=== PATIENT | female | born 1975 | race Caucasian/White ===

== ENCOUNTER 2019-11-11 13:08 | Day surgery (SDC) | payer BC ==
[~2019-11-11] VITALS: Ht 172.7 cm; Wt 125.5 kg
[2019-11-11 13:57] VITALS: BP 143/68; PULSE 71; TEMP 98
--- NOTE | 2019-11-11 15:25 | NUR ---
Chevy Kramer here to see the patient and history and physical done. All questions answered.
--- NOTE | 2019-11-11 15:38 | NUR ---
Pre-op meds given as ordered. Quinten Thomas ATHLETIC INSTRUCTOR here to talk with the patient and all questions answered.
[2019-11-11 17:58] VITALS: BP 128/69; PULSE 85; TEMP 98.8
--- NOTE | 2019-11-11 17:58 | NUR ---
PT TO ROOM 349 PER CART WITH REPORT FROM SALVADOR LOPEZ PACU @1750. PT IS A/O X3 DENIES PAIN NAUSEA OR VOMITING, LUNGS CLEAR, BOWEL SOUNDS PRESENT. IV TO RAC WITH LR RUNNING PER GRAVITY. ORIENTED TO ROOM.
[2019-11-11 18:15] VITALS: BP 144/69; PULSE 82; TEMP 98
--- NOTE | 2019-11-11 18:49 | NUR ---
REPORT TO SARHA LOPEZ.
--- NOTE | 2019-11-11 19:15 | NUR ---
Pt. sitting up at bedside. Pt. is A&OX3, assessment complete. INT to rt. ac patent. Pt. has met discharge criteria. INT to rt. ac discontinued. Discharge paperwork reviewed with pt. Pt. voices understanding. Scripts given to pt. Pt. escorted out by this nurse.
== END 2019-11-11 19:30 | disposition home or self-care (01) ==
LOC: SDCO 13:08 → SURG 18:44 → SDCO 19:30
DX: N13.2 Hydronephrosis with renal and ureteral calculous obstruction (principal); Z87.891 Personal history of nicotine dependence; D64.9 Anemia, unspecified; F41.9 Anxiety disorder, unspecified; R51 Headache
CPT/HCPCS: OP; C1769; J0690; J1100; J1885; J2405; J2704; J2765; J3010; J7120; Q9967